=== PATIENT | female | born 1975 | race Caucasian/White ===

== ENCOUNTER → 2021-06-30 | Day surgery (SDC) | payer OTHER ==
[~2021-06-30] VITALS: Ht 160 cm; Wt 91.0 kg
[~2021-06-30] MED LIST: APPLE CIDER VI300 MG PO; BENADRYL ALLERG25 MG PO; DAILY VALUE1 EACH PO; OXYCODONE-ACET1 EAC1 PO; PANTOPRAZOLE SO40 MG PO; PREDNISONE 20MG20 MG PO; SYMBICORT 80-10.2 GM INH; VENTOLIN HFA IN18 GM INH; ZYRTEC10 MG PO
== END | disposition home or self-care (01) ==
LOC: FAS 06:50
DX: Z12.11 Encounter for screening for malignant neoplasm of colon (principal); K57.30 Diverticulosis of large intestine without perforation or abscess without bleeding; K43.0 Incisional hernia with obstruction, without gangrene; J45.909 Unspecified asthma, uncomplicated; F41.9 Anxiety disorder, unspecified; K21.9 Gastro-esophageal reflux disease without esophagitis; Z90.710 Acquired absence of both cervix and uterus; Z98.51 Tubal ligation status; Z88.5 Allergy status to narcotic agent; Z79.899 Other long term (current) drug therapy; Z80.3 Family history of malignant neoplasm of breast; Z72.89 Other problems related to lifestyle
CPT/HCPCS: J2250; J7120

== ENCOUNTER → 2021-07-07 | Day surgery (SDC) | payer OTHER ==
[~2021-07-07] VITALS: Ht 160 cm; Wt 91.0 kg
[~2021-07-07] MED LIST changes: +ACETAMINOPHEN500 M1 PO; +COLACE100 MG PO; +MOTRIN600 MG PO; +OXY-IR 5MG5 MG PO
[2021-07-07 12:40] LABS: HCT 39.9 % (37.0-47.0); HGB 13.2 g/dl (12.5-16.0); MCH 30.8 pg (25.0-31.0); MCHC 33.1 g/dL (32.0-36.0); RBC 4.29 M/uL (4.20-5.40); RDW 12.7 % (11.5-14.0); WBC 8.6 K/uL (4.0-10.5)
[2021-07-07 12:58] LABS: BUN/CREAT RATIO (CALC) 14.5 RATIO; CREATININE 0.76 mg/dL (0.51-0.95); POTASSIUM 4.1 mmol/L (3.5-5.1)
== END | disposition home or self-care (01) ==
LOC: FAS 11:34
PROVIDERS: Anesthesiology; Student in an Organized Health Care Education/Training Program
DX: K43.0 Incisional hernia with obstruction, without gangrene (principal); J45.909 Unspecified asthma, uncomplicated; K21.9 Gastro-esophageal reflux disease without esophagitis; K59.00 Constipation, unspecified; Z79.899 Other long term (current) drug therapy; Z88.5 Allergy status to narcotic agent; Z90.710 Acquired absence of both cervix and uterus; Z98.51 Tubal ligation status; Z80.3 Family history of malignant neoplasm of breast; Z72.89 Other problems related to lifestyle
CPT/HCPCS: 36415; 80048; 93005; C1713; C1781; J0690; J1100; J1644; J1885; J2250; J2405; J2704; J2710; J3010; J7120